=== PATIENT | female | born 1940 | race Caucasian/White ===

== ENCOUNTER 2017-01-14 09:55 | Inpatient (IN) | payer MEDICARE ==
[2017-01-14] MEDS ORDERED: Metoclopramide IV* 5 MG/ML 2 ML VIAL IV ONE (10:26)
[2017-01-14] MEDS ORDERED: Ondansetron INJ* 2 MG/ML VIAL IV ONE (10:26)
[2017-01-14] MEDS ORDERED: NS 0.9% 1000 ML* 3,000 ML IV ONE (10:26)
[2017-01-14] MEDS ORDERED: Morphine INJ* 4 MG/ML 1 ML SYRINGE IV ONE (10:26)
[2017-01-14] MEDS ORDERED: Ondansetron INJ* 2 MG/ML VIAL ONE (10:39)
[2017-01-14 10:44] LABS: Hematocrit 45 % (35-47); Hemoglobin 14.8 g/dl (12.0-16.0); Mean Corpuscular HGB Conc 33 g/dl (31-36); Mean Corpuscular Hemoglobin 29 pg (27-31); Mean Corpuscular Volume 88 fL (80-97); Mean Platelet Volume 8 um3 (7.4-10.4); Red Blood Count 5.11 10^6/ul (4.0-5.4); Red Cell Distribution Width 14 % (10.5-15); White Blood Count 12.7 10^3/ul (3.5-10.8)
[2017-01-14 10:50] LABS: ALT 21 U/L (7-52); Albumin 3.2 g/dL (3.2-5.2); Alkaline Phosphatase 95 U/L (34-104); Amylase 10 U/L (29-103); BUN/Creatinine Ratio 29.3 (8-20); Blood Urea Nitrogen 22 mg/dL (6-24); C Reactive Protein 56.34 mg/L (< 5.00); CO2 Carbon Dioxide 26 mmol/L (22-32); Calcium 9.6 mg/dL (8.6-10.3); Chloride 92 mmol/L (101-111); Creatine Kinase 65 U/L (10-223); EGFR African American 96.1 (>60); EGFR Non-African American 74.7 (>60); Globulin 3.8 g/dL (2-4); Glucose 190 mg/dL (70-100); Lipase < 10 U/L (11.0-82.0); Sodium 132 mmol/L (133-145)
[2017-01-14] MEDS ORDERED: Iohexol 300* (CONTRAST) 10 ML SDV IV ONE (11:00)
[2017-01-14 11:24] LABS: Anion Gap 14 mmol/L (2-11); Potassium 4.7 mmol/L (3.5-5.0)
[2017-01-14 11:26] LABS: AST 32 U/L (13-39)
--- NOTE | 2017-01-14 14:02 | RAD ---
Indication: Diffuse abdominal pain, right lower quadrant pain with nausea and vomiting. Contrast: Administered 124.9 ml of OMNIPAQUE 300 mgi/ml. CT of the abdomen and pelvis was performed after oral and IV contrast administration. Coronal and sagittal reconstructed images were obtained. Coronal and sagittal reconstructed images were obtained. The lung bases demonstrates small bilateral pleural effusion. Left lower lobe atelectasis is noted. The heart is of normal size without evidence of pericardial effusion. This is new since previous exam. The liver is normal in size. There are no focal lesions or intrahepatic duct dilatation noted. Perihepatic ascites is noted. The spleen is normal in size. Hepatic ascites is noted. There is suggestion of a mass in the head of the pancreas. This appears to extend to the lesser curvature of the antrum of the stomach and duodenum. No adrenal lesions are noted. The kidneys demonstrate symmetric nephrograms without focal lesions. Small bowel demonstrates moderate distention. The colon is distended with air. Small periumbilical hernia is noted. Ascites has progressed since previous exam of December 28, 2016. The urinary bladder is unremarkable. No hernias are noted. The pelvis demonstrates marked wall thickening of the sigmoid colon. The possibility of underlying diverticulitis should be considered. IMPRESSION: MODERATELY DISTENDED LOOPS OF SMALL BOWEL ARE NOTED. THERE IS AIR IN THE COLON. THERE IS A MASS IN THE PANCREATIC NECK WHICH EXTENDS INTO THE LESSER CURVATURE OF THE ANTRUM OF THE STOMACH AND DUODENUM. ASCITES IS NOTED. DILATED COMMON BILE DUCT AND INTRAHEPATIC DUCTS ARE NOTED. THERE IS EXTENSIVE DIVERTICULOSIS OF THE SIGMOID COLON. UNDERLYING DIVERTICULITIS OF THE SIGMOID COLON IS NOT EXCLUDED. BILATERAL PLEURAL EFFUSION WITH LEFT LOWER LOBE ATELECTASIS IS NOTED. THIS IS NEW SINCE PREVIOUS EXAM OF DECEMBER 28, 2016.
[2017-01-14] MEDS ORDERED: Bisacodyl EC TAB* 5 MG PO ONE (16:27)
[2017-01-14] MEDS ORDERED: Morphine INJ* 4 MG/ML 1 ML SYRINGE IV PRN (16:28)
[2017-01-14] MEDS ORDERED: oxyCODONE TAB* 5 MG TAB PO PRN (16:28)
--- NOTE | 2017-01-14 18:03 | ED ---
Maylin Escalante Alfonso, scribed for Sameer Ibarra MD on 01/14/17 at 1034 . GI/ HPI - HPI Summary HPI Summary: This is a 76 y.o. F presenting to [facility] c.o. constant vomiting which began 4 days ago. Last night she vomited every two hours with four episodes. She has epigastric pain and nausea secondary to vomiting. Her last BM was 7 days ago which is irregular for her. She reports a lost appetite. She is still able to produce urine. Reports dizziness upon standing. Denies fever, chills, or SOB. Sx alleviated by nothing and aggravated by eating. Diagnosed on 12/28 at [facility] with tumors in pancreas and liver that is currently being biopsied. Zofran and metoclopramide have not improved her symptoms. PSHx gallbladder stones and total hysterectomy. PMHx of diabetes but taken of medication. Not taking any blood thinners. Neosporin allergy reviewed and confirmed. - History of Current Complaint Chief Complaint: EDAbdPain Time Seen by Provider: 01/14/17 10:08 Stated Complaint: VOMITING Hx Obtained From: Patient Onset/Duration: Started Days Ago - 7 days, Atraumatic Timing: Constant - Vomiting every two hours last night with four episodes Severity: Moderate Current Severity: Moderate Pain Intensity: 8 Location of Pain: Epigastric Pain Characteristics: Dull - Allergy/Home Medications Allergies/Adverse Reactions: Allergies Allergy/AdvReac Type Severity Reaction Status Date / Time Bacitracin [From Neosporin] Allergy Rash Verified 01/09/17 13:58 Neomycin [From Neosporin] Allergy Rash Verified 01/09/17 13:58 Polymyxin B [From Neosporin] Allergy Rash Verified 01/09/17 13:58 PMH/Surg Hx/FS Hx/Imm Hx Endocrine/Hematology History: Reports: Hx Diabetes EENT History: Denies: Hx Deafness Infectious Disease History: No Infectious Disease History: Denies: Traveled Outside the [place] in Last 30 Days - Family History Known Family History: Positive: Cardiac Disease - Father CHF and Mother MA - Social History Alcohol Use: None Smoking Status (MU): Never Smoked Tobacco Review of Systems Positive: Other - Loss of appititie. Negative: Fever, Chills Negative: Shortness Of Breath Gastrointestinal: Other Positive: Abdominal Pain, Vomiting, Nausea Neurological: Other - Dizziness upon standing All Other Systems Reviewed And Are Negative: Yes Physical Exam - Summary Physical Exam Summary: The patient is mildly ill The skin has an ulcer on the left leg. HEENT: The head is normocephalic and atraumatic. The pupils are equal and reactive. The conjunctivae are clear and without drainage. Nares are patent and without drainage. Mouth reveals dry mucous membranes and the throat is without erythema and exudate. The external ears are intact. The ear canals are patent and without drainage. The tympanic membranes are intact. Neck is supple with full range of motion and non-tender. There are no carotid bruits. There is no neck vein distension. Respiratory: Chest is non-tender. Lungs are clear to auscultation and breath sounds are symmetrical and equal. 3 second capillary refills. Cardiovascular: Heart is tachycardia. There is no murmur or rub auscultated. There is no peripheral edema and pulses are symmetrical and equal. Abdomen: The abdomen is tender and swollen. Decreased bowel sounds. Palpated a mass in epigastric area. Difuse tenderness in lower belly Musculoskeletal: There is no back pain noted. Extremities are non-tender with full range of motion. There is good capillary refill. There is minimal ankle edema or calf tenderness elicited. Neurological: Patient is alert and oriented to person, place and time. The patient has symmetrical motor strength in all four extremities. Cranial nerves are grossly intact. Deep tendon reflexes are symmetrical and equal in all four extremities. Psychiatric: The patient has an appropriate affect and does not exhibit any anxiety or depression. Triage Information Reviewed: Yes Vital Signs On Initial Exam: Initial Vitals Temp Pulse Resp BP Pulse Ox 97.5 F 103 20 156/72 94 01/14/17 09:59 01/14/17 09:59 01/14/17 09:59 01/14/17 09:59 01/14/17 09:59 Vital Signs Reviewed: Yes Diagnostics - Vital Signs Vital Signs Temp Pulse Resp BP Pulse Ox 01/14/17 10:02 98.7 F 102 20 156/72 94 01/14/17 09:59 97.5 F 103 20 156/72 94 - Laboratory Lab Results: Lab Results 01/14/17 01/14/17 01/14/17 Range/Units 10:15 10:15 10:15 WBC 12.7 H (3.5-10.8) 10^3/ul RBC 5.11 (4.0-5.4) 10^6/ul Hgb 14.8 (12.0-16.0) g/dl Hct 45 (35-47) % MCV 88 (80-97) fL MCH 29 (27-31) pg MCHC 33 (31-36) g/dl RDW 14 (10.5-15) % Plt Count 340 (150-450) 10^3/ul MPV 8 (7.4-10.4) um3 Neut % (Auto) 72.4 (38-83) % Lymph % (Auto) 15.4 L (25-47) % [place] % (Auto) 11.8 H (1-9) % Eos % (Auto) 0 (0-6) % Baso % (Auto) 0.4 (0-2) % Absolute Neuts (auto) 9.2 H (1.5-7.7) 10^3/ul Absolute Lymphs (auto) 1.9 (1.0-4.8) 10^3/ul Absolute Monos (auto) 1.5 H (0-0.8) 10^3/ul Absolute Eos (auto) 0 (0-0.6) 10^3/ul Absolute Basos (auto) 0 (0-0.2) 10^3/ul Absolute Nucleated RBC 0.02 10^3/ul Nucleated RBC % 0.1 Sodium 132 L (133-145) mmol/L Potassium 4.7 (3.5-5.0) mmol/L Chloride 92 L (101-111) mmol/L Carbon Dioxide 26 (22-32) mmol/L Anion Gap 14 H (2-11) mmol/L BUN 22 (6-24) mg/dL Creatinine 0.75 (0.51-0.95) mg/dL Est GFR ( Amer) 96.1 (>60) Est GFR (Non-Af Amer) 74.7 (>60) BUN/Creatinine Ratio 29.3 H (8-20) Glucose 190 H (70-100) mg/dL Lactic Acid 2.6 H* (0.5-2.0) mmol/L Calcium 9.6 (8.6-10.3) mg/dL Total Bilirubin 2.40 H (0.2-1.0) mg/dL AST 32 (13-39) U/L ALT 21 (7-52) U/L Alkaline Phosphatase 95 (34-104) U/L Total Creatine Kinase 65 (10-223) U/L C-Reactive Protein 56.34 H (< 5.00) mg/L Total Protein 7.0 (6.4-8.9) g/dL Albumin 3.2 (3.2-5.2) g/dL Globulin 3.8 (2-4) g/dL Albumin/Globulin Ratio 0.8 L (1-3) Amylase 10 L (29-103) U/L Lipase < 10 L (11.0-82.0) U/L Result Diagrams: 01/14/17 10:15 01/14/17 10:15 Lab Statement: Any lab studies that have been ordered have been reviewed, and results considered in the medical decision making process. - CT CT A/P w/ PO Contrast CT Interpretation: Positive (See Comments) - IMPRESSION: MODERATELY DISTENDED LOOPS OF SMALL BOWEL ARE NOTED. THERE IS AIR IN THE COLON. THERE IS A MASS IN THE PANCREATIC NECK WHICH EXTENDS INTO THE LESSER CURVATURE OF THE ANTRUM OF THE STOMACH AND DUODENUM. ASCITES IS NOTED. DILATED COMMON BILE DUCT AND INTRAHEPATIC DUCTS ARE NOTED. THERE IS EXTENSIVE DIVERTICULOSIS OF THE SIGMOID COLON. UNDERLYING DIVERTICULITIS OF THE SIGMOID COLON IS NOT EXCLUDED. BILATERAL PLEURAL EFFUSION WITH LEFT LOWER LOBE ATELECTASIS IS NOTED. THIS IS NEW SINCE PREVIOUS EXAM OF DECEMBER 28, 2016. CT Interpretation Completed By: Radiologist Re-Evaluation - Re-Evaluation First Eval Re-Evaluation Time: 15:49 - The patient does not feel well enough for discharge , thus is requesting admission. Change: Unchanged GIGU Course/Dx - Diagnoses Differential Diagnoses - Female: Bowel Obstruction, Cholelithiasis, Constipation , Dehydration, Diverticulosis, Pyelonephritis, Other - pancreatic mass, Provider Diagnoses: Hypovolemia dehydration, Constipation, Mass of pancreas - Physician Notifications Discussed Care Of Patient With: Lynn Valle - They agree to admitt pt under their care Time Discussed With Above Provider: 15:54 Instructed by Provider To: Admit As Inpatient Discharge - Discharge Plan Condition: Stable Disposition: ADMITTED TO [facility] The documentation as recorded by the Maylin bansal Alfonso accurately reflects the service I personally performed and the decisions made by , Sameer Ibarra MD.
[2017-01-14] MEDS: Enoxaparin(*) 40 MG/0.4 ML SYR SUBCUT SCH (20:57)
[2017-01-14] MEDS: Morphine TAB Extended Release (*) 15 MG TAB.ER PO SCH (20:58)
[2017-01-14] MEDS: Senna TAB PO SCH (20:58)
[2017-01-14] MEDS: Scopolamine 1.5 mg* PATCH TRANSDERM SCH (20:58)
[2017-01-14] MEDS: NS 0.9% 1000 ML* 1,000 ML IV SCH (21:01)
--- NOTE | 2017-01-14 23:37 | HP ---
HISTORY AND PHYSICAL: DATE OF ADMISSION: 01/14/17 PRIMARY CARE PHYSICIAN: Dr. Rodriguez CHIEF COMPLAINT: Nausea, vomiting and abdominal pain. HISTORY OF PRESENT ILLNESS: Ms. Puente is a pleasant 76-year-old female with a past medical history of diabetes, hyperlipidemia, OA, peripheral vascular disease and recently diagnosed pancreatic cancer, who presents to the hospital with worsening nausea, vomiting, abdominal pain and constipation. The patient states she has had issues with nausea, vomiting, and abdominal pain for a few weeks now. She initially had workup through [place] that revealed pancreatic mass and was referred to Dr. Crockett. She saw him in the office at the end of last month and she had a biopsy done by Dr. Reza on 01/10/17 that shows well to moderately differentiated adenocarcinoma consistent with a pancreatic primary. The patient is scheduled to see Dr. Crockett again on 01/16/17 to discuss possible options. She says in the past few days the nausea and vomiting have seemed to have gotten worse. She has been taking very little p.o. intake at home. Has been unable to keep anything down. She felt very dehydrated and noticed her urine has been dark. Denies any dysuria or hematuria. She has not had any fevers and chills. She has had abdominal pain that she reports has been mostly constant in the bilateral lower quadrants. She says she has not had a bowel movement for 7 days. At home, she has been on morphine and Zofran and also a scopolamine patch. However, this has been unable to control her symptoms. She came to the ED and was found to be dehydrated on her labs with mildly elevated lactic acidosis. In the ED, she received Reglan, morphine, Zofran, IV fluids, and an enema. She states she had a small bowel movement after the enema. She also underwent a CT scan that did not show any clear evidence of bowel obstruction. She states she felt a bit better after these interventions; however, she did not feel good enough to go home. We were consulted to consider the patient for observation overnight. PAST MEDICAL HISTORY: 1. Newly diagnosed pancreatic cancer. 2. Diabetes. 3. Hyperlipidemia. 4. OA. 5. Peripheral vascular disease. PAST SURGICAL HISTORY: 1. Bladder suspension. 2. Cholecystectomy. 3. Hysterectomy. 4. Rectocele repair. HOME MEDICATIONS: 1. Morphine sustained release 15 mg by mouth 2 times daily. 2. Synthroid 125 mcg by mouth daily. 3. Zofran 4 mg dissolving tablets as required for nausea. 4. Scopolamine patch transdermal. ALLERGIES: NEOSPORIN. FAMILY HISTORY: Significant for her father with CHF. Mother of ID. A sister with ovarian cancer. A brother with prostate cancer. SOCIAL HISTORY: The patient is a . Currently, her daughter is living with her and helping out since her recent diagnosis. She has 14 siblings. The patient has never smoked cigarettes. Denies any alcohol or illicit drug use. REVIEW OF SYSTEMS: A 12-point review of systems is negative except for that as noted in the HPI. PHYSICAL EXAMINATION GENERAL: The patient is a pleasant elderly female, lying in bed in no apparent distress. VITAL SIGNS: On admission, temperature 97.5, heart rate 103, respiratory rate of 20, O2 saturation 94% on room air, blood pressure 156/72. HEENT: Head normocephalic, atraumatic. Eyes: Pupils equal, round, and reactive to light and accommodation. Anicteric sclerae. ENT: Dry mucous membranes. No cervical adenopathy. LUNGS: Clear to auscultation bilaterally. No wheezes, rales, or rhonchi. CARDIOVASCULAR: Regular rate and rhythm. S1, S2 present. No murmurs, gallops or rubs. ABDOMEN: Soft, mild distention, tender to palpation, particularly in the lower abdomen bilaterally. No rebound or guarding. Bowel sounds are positive. EXTREMITIES: The patient with some mild lower extremity edema bilaterally. NEUROLOGIC: The patient is alert and oriented x3. No focal neurological deficits. SKIN: Warm, dry, and well perfused. LAB DATA/DIAGNOSTIC STUDIES: White blood cell count of 12.7, hemoglobin of 14.8, hematocrit of 45, platelets of 340. Sodium 132, potassium 4.7, chloride of 92, carbon dioxide of 26, BUN of 22, creatinine 0.75, glucose of 190. Lactic acid of 2.6. Total bilirubin of 2.4. LFTs within normal limits. CRP of 56. Lipase less than 10. CT abdomen and pelvis shows moderately distended loops of small bowel, air present in the colon, mass in the pancreatic neck which extends to the lesser curvature of the antrum of the stomach and duodenum, ascites, dilated common bile duct and intrahepatic ducts are noted. There is extensive diverticulosis of the sigmoid colon, underlying diverticulitis of the sigmoid colon is not excluded, bilateral pleural effusions with left lower lobe atelectasis is noted. This is new since previous exam of 12/28/16. ASSESSMENT AND PLAN: Nausea, vomiting, abdominal pain, and constipation in a 76 - year-old female with a past medical history of recently diagnosed pancreatic cancer with possible metastasis, hyperlipidemia, osteoarthritis, peripheral vascular disease. 1. Nausea and vomiting. May be related to malignancy. There is no clear evidence of a bowel obstruction on imaging; however, the pancreatic mass seems to be obstructing the common bile duct. The patient seems to be feeling better after some Zofran, Reglan, and IV fluids in the emergency department. We will continue p.r.n. Zofran and some IV fluids overnight. Restart scopolamine patch and have Compazine available as well. 2. Abdominal pain. Also may be related to malignancy. We will continue the patient's home long-acting morphine and we will have IV morphine and oral oxycodone available as needed. I am not sure if the patient has significant constipation. I do not appreciate too much stool on the CT scan, although she may benefit with some forms of promotility agents, which I will start. 3. Pancreatic cancer. Treatment course to be determined by Oncology. 4. Hypothyroidism. Continue home Synthroid. 5. Code status. The patient is a DNR/DNI, confirmed at the bedside with her and her daughter. States she has filled out paperwork previously at Dr. Rodriguez' office. TIME SPENT: Total time spent on this admission, 45 minutes, with over half the time spent [id number] with the patient in counseling and coordinating care. CC: Dr. Rodriguez; Kameron Crockett MD, Oncology * [id number]/[facility] #: [id number] [facility]
[2017-01-15] MEDS: PROCHLORPERAZINE INJ 5 MG/ML 2 ML VIAL IV PRN (03:47)
[2017-01-15] MEDS ORDERED: Bisacodyl EC TAB* 5 MG PO ONE (06:00)
[2017-01-15] MEDS: Levothyroxine TAB* 125 MCG TAB PO SCH (06:20)
[2017-01-15] MEDS: Morphine TAB Extended Release (*) 15 MG TAB.ER PO SCH ×2 (08:59→20:33)
[2017-01-15] MEDS: NS 0.9% 1000 ML* 1,000 ML IV SCH ×2 (09:00→22:37)
[2017-01-15] MEDS: Senna TAB PO SCH ×2 (09:00→20:33)
[2017-01-15] MEDS: Ondansetron INJ* 2 MG/ML VIAL IV PRN (09:07)
[2017-01-15 10:37] LABS: Urine Bacteria 3+ (Absent); Urine Bilirubin 1+ (Negative); Urine Glucose Negative (Negative); Urine Nitrite Positive (Negative)
--- NOTE | 2017-01-15 13:21 | CONSULT ---
Palliative / Hospice Consult Ordering Provider: Gabo Carranza - Subjective Code Status: DNR Advance Directives Location: No Advance Directives MOLST Part A Completed: Yes MOLST Part E Completed:: Yes HCP Completed: No - Plan Katharine - History or Present Illness History or Present Illness: This 76 year old woman has been diagnosed with stage 4 widely metastatic pancreatic cancer with ascites and local spread to liver, stomach and duodenum has been doing very poorly at home with nausea and vomiting and difficulty with pain control. The family is present and have already discussed the situation with Dr. Carranza, and are in agreement with comfort measures only at this point. The patient is sound asleep and I am unable to awaken her by voice. Her chosen HCP is Katharine. Her MOLST specifies DNR/DNI. Lab Values: Abnormal Lab Results 01/15/17 01/15/17 00:10 10:00 Lactic Acid 1.5 Urine Color Lacie Urine Appearance Cloudy Urine pH 5.0 Ur Specific [place] 1.047 H Urine Protein 1+(30 mg/dl) H Urine Ketones Trace H Urine Blood 1+ H Urine Nitrate Positive H Urine Bilirubin 1+ H Urine Urobilinogen Positive H Ur Leukocyte Esterase Negative Urine WBC (Auto) Absent Urine RBC (Auto) Trace(0-2/hpf) Amorphous Crystals Present H Urine Bacteria 3+ H Hyaline Casts Present H Urine Glucose Negative Urine Ascorbic Acid * H Laboratory Last Values WBC 12.7 10^3/ul (3.5-10.8) H 01/14/17 10:15 RBC 5.11 10^6/ul (4.0-5.4) 01/14/17 10:15 Hgb 14.8 g/dl (12.0-16.0) 01/14/17 10:15 Hct 45 % (35-47) 01/14/17 10:15 MCV 88 fL (80-97) 01/14/17 10:15 MCH 29 pg (27-31) 01/14/17 10:15 MCHC 33 g/dl (31-36) 01/14/17 10:15 RDW 14 % (10.5-15) 01/14/17 10:15 Plt Count 340 10^3/ul (150-450) 01/14/17 10:15 MPV 8 um3 (7.4-10.4) 01/14/17 10:15 Neut % (Auto) 72.4 % (38-83) 01/14/17 10:15 Lymph % (Auto) 15.4 % (25-47) L 01/14/17 10:15 [place] % (Auto) 11.8 % (1-9) H 01/14/17 10:15 Eos % (Auto) 0 % (0-6) 01/14/17 10:15 Baso % (Auto) 0.4 % (0-2) 01/14/17 10:15 Absolute Neuts (auto) 9.2 10^3/ul (1.5-7.7) H 01/14/17 10:15 Absolute Lymphs (auto) 1.9 10^3/ul (1.0-4.8) 01/14/17 10:15 Absolute Monos (auto) 1.5 10^3/ul (0-0.8) H 01/14/17 10:15 Absolute Eos (auto) 0 10^3/ul (0-0.6) 01/14/17 10:15 Absolute Basos (auto) 0 10^3/ul (0-0.2) 01/14/17 10:15 Absolute Nucleated RBC 0.02 10^3/ul 01/14/17 10:15 Nucleated RBC % 0.1 01/14/17 10:15 Sodium 132 mmol/L (133-145) L 01/14/17 10:15 Potassium 4.7 mmol/L (3.5-5.0) 01/14/17 10:15 Chloride 92 mmol/L (101-111) L 01/14/17 10:15 Carbon Dioxide 26 mmol/L (22-32) 01/14/17 10:15 Anion Gap 14 mmol/L (2-11) H 01/14/17 10:15 BUN 22 mg/dL (6-24) 01/14/17 10:15 Creatinine 0.75 mg/dL (0.51-0.95) 01/14/17 10:15 Est GFR ( Amer) 96.1 (>60) 01/14/17 10:15 Est GFR (Non-Af Amer) 74.7 (>60) 01/14/17 10:15 BUN/Creatinine Ratio 29.3 (8-20) H 01/14/17 10:15 Glucose 190 mg/dL (70-100) H 01/14/17 10:15 Lactic Acid 1.5 mmol/L (0.5-2.0) 01/15/17 00:10 Calcium 9.6 mg/dL (8.6-10.3) 01/14/17 10:15 Total Bilirubin 2.40 mg/dL (0.2-1.0) H 01/14/17 10:15 AST 32 U/L (13-39) 01/14/17 10:15 ALT 21 U/L (7-52) 01/14/17 10:15 Alkaline Phosphatase 95 U/L (34-104) 01/14/17 10:15 Total Creatine Kinase 65 U/L (10-223) 01/14/17 10:15 C-Reactive Protein 56.34 mg/L (< 5.00) H 01/14/17 10:15 Total Protein 7.0 g/dL (6.4-8.9) 01/14/17 10:15 Albumin 3.2 g/dL (3.2-5.2) 01/14/17 10:15 Globulin 3.8 g/dL (2-4) 01/14/17 10:15 Albumin/Globulin Ratio 0.8 (1-3) L 01/14/17 10:15 Amylase 10 U/L (29-103) L 01/14/17 10:15 Lipase < 10 U/L (11.0-82.0) L 01/14/17 10:15 Urine Color Lacie 01/15/17 10:00 Urine Appearance Cloudy 01/15/17 10:00 Urine pH 5.0 (5-9) 01/15/17 10:00 Ur Specific [place] 1.047 (1.010-1.030) H 01/15/17 10:00 Urine Protein 1+(30 mg/dl) (Negative) H 01/15/17 10:00 Urine Ketones Trace (Negative) H 01/15/17 10:00 Urine Blood 1+ (Negative) H 01/15/17 10:00 Urine Nitrate Positive (Negative) H 01/15/17 10:00 Urine Bilirubin 1+ (Negative) H 01/15/17 10:00 Urine Urobilinogen Positive (Negative) H 01/15/17 10:00 Ur Leukocyte Esterase Negative (Negative) 01/15/17 10:00 Urine WBC (Auto) Absent (Absent) 01/15/17 10:00 Urine RBC (Auto) Trace(0-2/hpf) (Absent) 01/15/17 10:00 Amorphous Crystals Present (Absent) H 01/15/17 10:00 Urine Bacteria 3+ (Absent) H 01/15/17 10:00 Hyaline Casts Present (Absent) H 01/15/17 10:00 Urine Glucose Negative (Negative) 01/15/17 10:00 Urine Ascorbic Acid * (Negative) H 01/15/17 10:00 - Objective Active Medications: Enoxaparin Sodium (Lovenox(*)) 40 mg SUBCUT Q24H [facility] Last Admin: 01/14/17 20:57 Dose: 40 mg Sodium Chloride (Ns 0.9% 1000 Ml*) 1,000 mls @ 75 mls/hr IV PER RATE [facility] Last Admin: 01/15/17 09:00 Dose: 75 mls/hr Levothyroxine Sodium (Synthroid Tab*) 125 mcg PO 0600 [facility] Last Admin: 01/15/17 06:20 Dose: 125 mcg Morphine Sulfate (Ms Contin(*)) 15 mg PO BID [facility] Last Admin: 01/15/17 08:59 Dose: 15 mg Ondansetron HCl (Zofran Inj*) 4 mg IV Q4H PRN PRN Reason: NAUSEA/VOMITING Last Admin: 01/15/17 09:07 Dose: 4 mg Oxycodone HCl (Roxycodone Tab*) 5 mg PO Q4H PRN PRN Reason: PAIN Prochlorperazine Edisylate (Compazine Inj*) 5 mg IV Q6H PRN PRN Reason: NAUSEA/VOMITING Last Admin: 01/15/17 03:47 Dose: 5 mg Scopolamine (Transderm-Scop 1.5 Mg Patch*) 1 patch TRANSDERM Q72H [facility] Last Admin: 01/14/17 20:58 Dose: 1 patch Senna (Senokot Tab*) 1 tab PO BID [facility] Last Admin: 01/15/17 09:00 Dose: 1 tab Vital Signs: Vital Signs: Temp Pulse Resp BP Pulse Ox 98.3 F 86 16 139/57 96 01/15/17 07:31 01/15/17 07:31 01/15/17 10:59 01/15/17 07:31 01/15/17 07:31 Patient Weight: Weight 208 lb Intake and Output: Intake & Output 01/13/17 01/14/17 01/15/17 01/16/17 06:59 06:59 06:59 06:59 Intake Total 10 240 Balance 10 240 Weight 208 lb Intake: IV Fluids 10 Oral 0 240 Other: # Bowel Movements 0 ADLs: Meal Record Start: 01/14/17 18: 20 Freq: DAILY@0900,1400,1800 Status: Active Created 01/14/17 18:20 System (Rec: 01/14/17 18:20 System [id number]) Document 01/15/17 09:00 [id number] (Rec: 01/15/17 12:16 [id number]) Intake and Output Start: 01/14/17 10: 02 Freq: Status: Active Created 01/14/17 10:02 System (Rec: 01/14/17 10:02 System [id number]) Intake and Output Start: 01/14/17 18: 20 Freq: DAILY@0600,1400,2200 Status: Active Created 01/14/17 18:20 System (Rec: 01/14/17 18:20 System [id number]) Document 01/15/17 06:00 [id number] (Rec: 01/15/17 06:10 [id number]) General Impression: Exhausted-appearing woman sleeping deeply. Daughter present is a bio medical technician for this patient's PMD Dr. Rodriguez. Head: temporal muscle wasting Eyes: No Scleral Icterus Cardiovascular: RRR Respiratory: Symmetrical Chest Expansion and Respiratory Effort Abdominal: - - hard mass >6 cm palpable in RUQ below liver edge, no guarding or rebound. Extremities: No Clubbing, Cyanosis, - - 1-2+ edema - Assessment Assessment: Advanced pancreatic cancer in a patient who has been failing at home with poor symptom control. The entire family is interested in hospice services and educated about the service. They will need a hospital bed and possibly other DMEs. They will need referral to [facility] hospice in [facility]. The HCP form was left for the patient to fill out when she awakens. She qualifies for hospice services with a primary diagnosis of metastatic pancreatic cancer and a secondary diagnosis of debility. - Plan Consult Plan (MU): Hospice - Time On Unit Date of Evaluation: 01/15/17 Hospice Consult Time in: 12:40 Hospice Consult Time Out: 13:30 Hospice Consult Time Total: 50 > 50% of Time Spend In Counseling or Coordinating Care: Yes
[2017-01-15] MEDS: Enoxaparin(*) 40 MG/0.4 ML SYR SUBCUT SCH (18:53)
[2017-01-16] MEDS: Levothyroxine TAB* 125 MCG TAB PO SCH (06:37)
[2017-01-16] MEDS: Morphine TAB Extended Release (*) 15 MG TAB.ER PO SCH ×2 (08:00→22:42)
[2017-01-16] MEDS: Senna TAB PO SCH ×2 (08:00→22:43)
[2017-01-16] MEDS: NS 0.9% 1000 ML* 1,000 ML IV SCH (12:09)
[2017-01-16] MEDS: Ondansetron INJ* 2 MG/ML VIAL IV PRN (15:46)
[2017-01-16] MEDS: Enoxaparin(*) 40 MG/0.4 ML SYR SUBCUT SCH (15:46)
[2017-01-16] MEDS: PROCHLORPERAZINE INJ 5 MG/ML 2 ML VIAL IV PRN (20:49)
--- NOTE | 2017-01-16 21:59 | DS ---
DISCHARGE SUMMARY: DATE OF ADMISSION: 01/14/17 DATE OF DISCHARGE: 01/16/17 DISCHARGE DIAGNOSES: 1. Metastatic pancreatic cancer: Plan for transition to comfort care and home with hospice. 2. Nausea, vomiting and abdominal pain: Comfort care as above. DISCHARGE MEDICATIONS: 1. Levothyroxine 125 mcg p.o. q.a.m. 2. Scopolamine 1.5 mg patch transdermally q. 72 hours. 3. Senna 1 tablet p.o. b.i.d. 4. Oxycodone 5 mg p.o. q. 4 hours p.r.n. pain. 5. Atropine 1% 2 drops sublingual q. 2 hours p.r.n. discomfort/excessive secretions. 6. Lorazepam 0.5 mg p.o. q. 6 hours p.r.n. agitation/anxiety/insomnia. 7. Morphine 20 mg/mL, 5 mg p.o. q. 4 hours, p.r.n. pain or shortness of breath. 8. Morphine sulfate CR 50 mg b.i.d. 9. Ondansetron 4 mg p.o. q. 4 hours p.r.n. nausea/vomiting. HOSPITAL COURSE: Please see admission note for full H and P; however, briefly, Ms. Puente is a 76- year-old female who was initially seen on 01/03/[address] Kameron Crockett in consultation with a new pa ncreatic mass. Subsequent workup revealed metastatic pancreatic cancer. She presented to the ER on 01/14/17 with uncontrolled symptoms progressive since diagnosis. During admission, Dr. Carranza spent an extensive time discussing the plan of care with the patient and decision was made to transition to comfort care measures only. [facility] saw the hossein atient in consultation and agreed that she was an excellent candidate for hospice services. The kristina duval lives in [facility] and will be discharged home with [facility]. Durable medical e quipment is currently set up for delivery upon signup with hospice, which is planned for this aftern oon. Due to [facility]'s schedule, however, they may require admission tomorrow morning and if this is the case, the patient's family does not feel she is safe without the DME in place. Extensive di scussion regarding this plan of care was given to the patient and her daughter. The patient was min imally involved though she was responsive. At this time, her symptoms have been controlled; however , she will be discharged home with lorazepam, morphine, and atropine for comfort measure use as need ed. I did review this with the patient's daughter. Per the patient's request, she would like to be followed by her primary care Dr. Rodriguez with hospice. I have encouraged her to call our office shoul d anything change or if there are any concerns. The daughter states very good understanding of the plan of care and denies further questions. SOURAV SHEPARD, JOANN [id number]/[facility] #: [id number]
--- NOTE | 2017-01-16 22:24 | DS ---
CC: Jones Rodriguez DO, [place] * DISCHARGE SUMMARY: ADDENDUM: TIME SPENT: Greater than 30 minutes spent with greater than 50% [id number] counseling. [id number]/[facility] #: [id number] MTDD
[2017-01-17] MEDS: NS 0.9% 1000 ML* 1,000 ML IV SCH (02:38)
[2017-01-17] MEDS: Levothyroxine TAB* 125 MCG TAB PO SCH (05:50)
[2017-01-17 07:39] VITALS: BP 148/69
[2017-01-17] MEDS: PROCHLORPERAZINE INJ 5 MG/ML 2 ML VIAL IV PRN (08:09)
[2017-01-17] MEDS ORDERED: Ondansetron ODT TAB* 4 MG SL PRN (10:13)
[2017-01-17] MEDS ORDERED: NS 0.9% 1000 ML* 1,000 ML IV SCH (10:13)
[2017-01-17] MEDS: Morphine TAB Extended Release (*) 15 MG TAB.ER PO SCH ×2 (11:33→20:46)
[2017-01-17] MEDS: Senna TAB PO SCH ×2 (11:34→20:46)
[2017-01-17] MEDS: Morphine ORAL CONCENTRATE* 5 MG/0.25 ML ORAL.SYRIN SL PRN ×6 (11:47→22:35)
[2017-01-17] MEDS: Ondansetron ODT TAB* 4 MG SL SCH ×2 (11:48→18:18)
[2017-01-17] MEDS ORDERED: Morphine INJ* 10 MG/ML 1 ML SYRINGE IV ONE (12:00)
--- NOTE | 2017-01-17 12:14 | PN ---
Progress Note - Progress Note SOAP: Subjective: []Not responsive to voice during visit. Limited response to touch, though minimal intervention d/t comfort care. Continued nausea and pain. Not alert enough to take PO. Have not tried liquid/ SL forms. Has IV in place. Daughter still hopes to get mom home, though will require chair lift as apartment is on second story and she does not think a stretcher will work. Medications: Enoxaparin Sodium (Lovenox(*)) 40 mg SUBCUT Q24H [facility] Last Admin: 01/16/17 15:46 Dose: 40 mg Sodium Chloride (Ns 0.9% 1000 Ml*) 1,000 mls @ 0 mls/hr IV PER RATE [facility] PRN Reason: KVO Levothyroxine Sodium (Synthroid Tab*) 125 mcg PO 0600 [facility] Last Admin: 01/17/17 05:50 Dose: 125 mcg Morphine Sulfate (Ms Contin(*)) 15 mg PO BID [facility] Last Admin: 01/17/17 11:33 Dose: Not Given Morphine Sulfate (Morphine Oral Concentrate*) 10 mg SL Q2H PRN PRN Reason: PAIN Last Admin: 01/17/17 11:47 Dose: 10 mg Ondansetron HCl (Zofran Inj*) 4 mg IV Q4H PRN PRN Reason: NAUSEA/VOMITING Last Admin: 01/16/17 15:46 Dose: 4 mg Ondansetron HCl (Zofran Odt Tab*) 4 mg SL Q6H [facility] Last Admin: 01/17/17 11:48 Dose: 4 mg Prochlorperazine Edisylate (Compazine Inj*) 5 mg IV Q6H PRN PRN Reason: NAUSEA/VOMITING Last Admin: 01/17/17 08:09 Dose: 5 mg Scopolamine (Transderm-Scop 1.5 Mg Patch*) 1 patch TRANSDERM Q72H [facility] Last Admin: 01/14/17 20:58 Dose: 1 patch Senna (Senokot Tab*) 1 tab PO BID [facility] Last Admin: 01/17/17 11:34 Dose: Not Given Objective: [] Vital Signs Temp Pulse Resp BP Pulse Ox 99.3 F 98 12 148/69 92 01/17/17 08:09 01/17/17 07:11 01/17/17 11:47 01/17/17 07:11 01/17/17 07:11 Minimally responsive. Even, non-labored respirations without agonal breathing noted HRR Flushes with clammy skin Assessment: []76 yo with metastatic pancreatic cancer transitioning to comfort care measures. D/C yesterday delayed as DMEs were not able to be delivered, since has cont.'d to decline and while she is not actively dying I believe she jackelyn has only weeks at the very most (possibly days). Plan: []1. Add Zofran SL, morphine concentrate SL 2. SW to work with family re: d/c - d/c only if hospice can sign on d/t progressive symptoms 3. Comfort care orders in
[2017-01-17] MEDS: Scopolamine 1.5 mg* PATCH TRANSDERM SCH (18:18)
[2017-01-17] MEDS: Ondansetron INJ* 2 MG/ML VIAL IV PRN (21:37)
[2017-01-18] MEDS: Ondansetron ODT TAB* 4 MG SL SCH ×4 (00:02→17:59)
[2017-01-18] MEDS: Morphine ORAL CONCENTRATE* 5 MG/0.25 ML ORAL.SYRIN SL PRN ×10 (00:32→20:09)
[2017-01-18] MEDS: Ondansetron INJ* 2 MG/ML VIAL IV PRN ×2 (04:11→09:16)
[2017-01-18] MEDS: Levothyroxine TAB* 125 MCG TAB PO SCH (05:40)
[2017-01-18] MEDS: Acetaminophen SUPP* 325 MG SUPP PR PRN ×2 (09:10→14:22)
[2017-01-18] MEDS: Atropine 1% (ORAL/SL)* 15 ML BTL SL PRN ×6 (09:16→20:09)
[2017-01-18] MEDS ORDERED: LORazepam INJ* 2 MG/ML 1 ML VIAL IV PUSH PRN (09:28)
--- NOTE | 2017-01-18 10:26 | DS ---
AMENDED REPORT NOW INCLUDES COVERING PHYSICIAN SIGNATURE FOR REPORT AND ADDENDUM DISCHARGE SUMMARY: DATE OF ADMISSION: 01/14/17 DATE OF DISCHARGE: 01/16/17 DISCHARGE DIAGNOSES: 1. Metastatic pancreatic cancer: Plan for transition to comfort care and home with hospice. 2. Nausea, vomiting and abdominal pain: Comfort care as above. DISCHARGE MEDICATIONS: 1. Levothyroxine 125 mcg p.o. q.a.m. 2. Scopolamine 1.5 mg patch transdermally q. 72 hours. 3. Senna 1 tablet p.o. b.i.d. 4. Oxycodone 5 mg p.o. q. 4 hours p.r.n. pain. 5. Atropine 1% 2 drops sublingual q. 2 hours p.r.n. discomfort/excessive secretions. 6. Lorazepam 0.5 mg p.o. q. 6 hours p.r.n. agitation/anxiety/insomnia. 7. Morphine 20 mg/mL, 5 mg p.o. q. 4 hours, p.r.n. pain or shortness of breath. 8. Morphine sulfate CR 50 mg b.i.d. 9. Ondansetron 4 mg p.o. q. 4 hours p.r.n. nausea/vomiting. HOSPITAL COURSE: Please see admission note for full H and P; however, briefly, Ms. Puente is a 76-year-old female who was initially seen on 01/03/[address] Kameron Crockett in consultation with a new pancreatic mass. Subsequent workup revealed metastatic pancreatic cancer. She presented to the ER on 01/14/17 with uncontrolled symptoms progressive since diagnosis. During admission, Dr. Carranza spent an extensive time discussing the plan of care with the patient and decision was made to transition to comfort care measures only. Dr. Monse Morris of the [facility] Team saw the patient in consultation and agreed that she was an excellent candidate for hospice services. The patient lives in [facility] and will be discharged home with [facility]. Durable medical equipment is currently set up for delivery upon signup with hospice, which is planned for this afternoon. Due to [facility]'s schedule, however, they may require admission tomorrow morning and if this is the case, the patient's family does not feel she is safe without the DME in place. Extensive discussion regarding this plan of care was given to the patient and her daughter. The patient was minimally involved though she was responsive. At this time, her symptoms have been controlled; however, she will be discharged home with lorazepam, morphine, and atropine for comfort measure use as needed. I did review this with the patient's daughter. Per the patient' s request, she would like to be followed by her primary care Dr. Rodriguez with hospice. I have encouraged her to call our office should anything change or if there are any concerns. The daughter states very good understanding of the plan of care and denies further questions. CATHIE SHEPARD NP [id number]/[facility] #: [id number] <Electronically signed by Gabo Carranza MD> 01/16/17 2218 Gabo Carranza MD Dictated Date/Time: 01/16/17 1224 Transcribed Date/Time 01/16/17 1340 CC: Jones Rodriguez DO; Gabo Carranza MD ADDENDUM CC: Jones Rodriguez DO, [place] * DISCHARGE SUMMARY: ADDENDUM: TIME SPENT: Greater than 30 minutes spent with greater than 50% [id number] counseling. CATHIE Barber-[id number]/[facility] #: [id number] <Electronically signed by Cathie Shepard WINDOWS ADMIN>01/17/17 0740 Dictated by: Cathie Shepard NP Dictated Date/Time:01/16/17 1229 Transcribed Date/Time 01/16/17 1450 Copy to: Jones Rodriguez DO; Gabo Carranza MD MTDD
--- NOTE | 2017-01-18 16:57 | PN ---
Progress Note - Progress Note SOAP: Subjective: []Resting comfortably. Low RR. No pain. Acetaminophen (Tylenol Supp*) 325 mg IL Q4H PRN PRN Reason: FEVER/PAIN Last Admin: 01/18/17 14:22 Dose: 325 mg Atropine Sulfate (Atropine 1% (Oral/Sl)*) 2 drop SL Q2H PRN PRN Reason: DISCOMFORT Last Admin: 01/18/17 16:02 Dose: 2 drop Levothyroxine Sodium (Synthroid Tab*) 125 mcg PO 0600 [facility] Last Admin: 01/18/17 05:40 Dose: Not Given Lorazepam (Ativan Inj*) 0.5 mg IV PUSH Q4H PRN PRN Reason: ANXIETY Last Admin: 01/18/17 10:18 Dose: 0.5 mg Morphine Sulfate (Morphine Oral Concentrate*) 10 mg SL Q2H PRN PRN Reason: PAIN Last Admin: 01/18/17 16:02 Dose: 10 mg Ondansetron HCl (Zofran Inj*) 4 mg IV Q4H PRN PRN Reason: NAUSEA/VOMITING Last Admin: 01/18/17 09:16 Dose: 4 mg Ondansetron HCl (Zofran Odt Tab*) 4 mg SL Q6H [facility] Last Admin: 01/18/17 12:43 Dose: Not Given Prochlorperazine Edisylate (Compazine Inj*) 5 mg IV Q6H PRN PRN Reason: NAUSEA/VOMITING Last Admin: 01/17/17 08:09 Dose: 5 mg Scopolamine (Transderm-Scop 1.5 Mg Patch*) 1 patch TRANSDERM Q72H [facility] Last Admin: 01/17/17 18:18 Dose: 1 patch Objective: [] Vital Signs Temp Pulse Resp BP Pulse Ox 101.1 F 98 12 148/69 92 01/18/17 14:05 01/17/17 07:11 01/18/17 16:02 01/17/17 07:11 01/17/17 07:11 HEENT - dry mouth, not responsive Exam differed Assessment: []Progressive pancreatic cancer and on comfort care. Resting comfortably. - No change in medication. Plan: []
== END 2017-01-18 23:10 | disposition expired | DRG 436 ==
LOC: ED 09:55 → MED 16:23 → OBSVTOIN 01-15 13:30 → MED 01-17 15:50
PROVIDERS: ADMIT Hospitalist; ATTEND Internal Medicine Hematology & Oncology
DX: C25.9 Malignant neoplasm of pancreas, unspecified (principal); R18.8 Other ascites; C78.89 Secondary malignant neoplasm of other digestive organs; C78.4 Secondary malignant neoplasm of small intestine; C78.7 Secondary malignant neoplasm of liver and intrahepatic bile duct; Z88.8 Allergy status to other drugs, medicaments and biological substances; Z88.1 Allergy status to other antibiotic agents; Z82.49 Family history of ischemic heart disease and other diseases of the circulatory system; E78.5 Hyperlipidemia, unspecified; E11.51 Type 2 diabetes mellitus with diabetic peripheral angiopathy without gangrene; M19.90 Unspecified osteoarthritis, unspecified site; K59.00 Constipation, unspecified; E86.0 Dehydration; Z80.42 Family history of malignant neoplasm of prostate; Z80.41 Family history of malignant neoplasm of ovary; Z51.5 Encounter for palliative care; Z66 Do not resuscitate
CPT/HCPCS: 36415; 74177; 80053; 81003; 81015; 82150; 82272; 82550; 83605; 83690; 85025; 86140; 87077; 87086; 87186; 93005; 99232; 99239; A9270-GY; G0378; J0780; J1650; J2060; J2270; J2405; Q9967